=== PATIENT | female | born 1985 | race Caucasian/White ===

== ENCOUNTER 2021-12-29 13:59 | Emergency (ER) | payer BC ==
[~2021-12-29] VITALS: Ht 165.1 cm; Wt 81.4 kg
[2021-12-29 14:02] VITALS: BP 115/90
[2021-12-29] MEDS ORDERED: LIDOCAINE 1%/EPI 1:100,000 inj. 10 ML multi-dose vial SQ ONE (14:10)
[2021-12-29] MEDS ORDERED: LIDOcaine 1% W/epiNEPHrine 1:100,000 20ml vial SQ ONE (14:10)
[2021-12-29] MEDS ORDERED: ibuprofen 200mg tablet PO ONE (15:20)
== END 2021-12-29 15:36 | disposition home or self-care (01) ==
LOC: ER 14:00
DX: S61.012A Laceration without foreign body of left thumb without damage to nail, initial encounter (principal); Z88.1 Allergy status to other antibiotic agents; Z88.5 Allergy status to narcotic agent; Z88.8 Allergy status to other drugs, medicaments and biological substances; W45.8XXA Other foreign body or object entering through skin, initial encounter; Y93.89 Activity, other specified; Y92.89 Other specified places as the place of occurrence of the external cause; Y99.8 Other external cause status
CPT/HCPCS: 12001; 99282; J3490; A6449